=== PATIENT | male | born 2000 | race Caucasian/White ===

== ENCOUNTER 2022-01-25 22:04 | Emergency (ER) | payer MEDICAID, SELFPAY ==
[2022-01-25 22:27] VITALS: BP 122/62; PULSE 69; RESP 16; TEMP 36.8; O2SAT 98; BMI 29.2
[2022-01-26 00:20] VITALS: BP 140/58; PULSE 65; RESP 17; O2SAT 98
--- NOTE | 2022-01-26 00:20 | W.ED.NAVMDI ---
HPI - Nausea/Vomiting/Diarrhea General: Chief complaint: Nausea/Vomiting/Diarrhea Stated complaint: N/D Time Seen by Provider: 01/26/22 00:19 History of Present Illness: 21-year-old male patient comes in today with complaints of nausea vomiting and diarrhea. Patient's father reports that on Sunday patient did not feel very well and started having some loose stools. Sunday he threw up 2 times and had more watery diarrhea stools. Today patient has seemed improved but continues to have some diarrhea and abdominal discomfort. No fever has been reported. Patient did drink some pond water yesterday when he was working outside. Associated nausea: Yes Associated symtoms: Reports nausea Review of Systems Const: Reports: body aches; Denies: fever(s) GI: Reports: nausea, vomiting and diarrhea Physical Exam Const: COMMON NORMALS: alert HENMT: COMMON NORMALS: normocephalic HEAD & SCALP: normocephalic Neck/C-Spine: COMMON NORMALS: full ROM Resp: COMMON NORMALS: normal respiratory effort and clear to auscultation bilaterally AUSCULTATION: clear to auscultation bilaterally Cardio: COMMON NORMALS: regular rate and regular rhythm RATE: regular rate RHYTHM: regular rhythm GI: COMMON NORMALS: Soft to palpation and non-tender AUSCULTATION: Yes normoactive bowel sounds PALPATION: Yes Soft to palpation : COMMON NORMALS: Yes no CVA tenderness BLADDER/KIDNEY EXAM: Yes no CVA tenderness Back/Pelvis: COMMON NORMALS: no CVA tenderness and thoracic and lumbar spine normal to inspection Neuro: SENSORIUM/ORIENTATION: Yes alert Skin: COMMON NORMALS: turgor normal GENERAL SKIN EXAM: turgor normal Course Vital Signs: Vital signs: Vital Signs Temperature 98.3 F 01/25/22 22:27 Pulse Rate 65 01/26/22 00:20 Respiratory Rate 17 01/26/22 00:20 Blood Pressure 140/58 01/26/22 00:20 Pulse Oximetry 98 01/26/22 00:20 Oxygen Delivery Va thod 01/26/22 00:20 MDM - Nausea/Vomiting/Diarrhea Medical Decision Making 21-year-old male patient comes in today for complaints of nausea vomiting and diarrhea. On exam patient appears alert and oriented. Abdomen soft nontender. Oral mucosa is moist. Patient only reported 2 episodes of emesis. Patient has had diarrhea for the last 2 days. Differential diagnosis includes gastroenteritis, appendicitis, food poisoning, enteritis/colitis. No signs of serious illness was noted. Patient has been able to tolerate oral fluids without any difficulty today. Patient also reported some decrease in diarrhea stools. Patient reports being able to hold food down. Recommended continue monitoring. Encourage fluids and rest and electrolyte replacement solution. Discussed need for return to the ER or follow-up with primary care. Family reported understanding and agreed to plan. Discharge Plan Discharge Patient Disposition: Home Clinical Impression: Gastroenteritis Condition: Stable Discharge Orders: Discharge ED (Routine); Ordered 01/26/22 Ordered By: Sky Delong Discharge Diet: Advance as tolerated Discharge Activity: Increase activity as tolerated Patient Instructions: Gastroenteritis in Children (ED) Activity Restrictions/Additional Instructions: Encourage plenty of fluids. Use an electrolyte solution such as clear-colored Gatorade or lynch colored Gatorade or Pedialyte. 8 ounces 3 times a day to help replace salts. Other than that drink plenty of water and fluids. Follow-up with primary care as needed. Return to ER for worsening symptoms such as blood in vomit or stool, fever greater than 100.4, severe abdominal pain, or new concerns. Coding Level of Care Code ED [facility] [employer] [facility] for [facility]
== END 2022-01-26 00:38 | disposition home or self-care (01) ==
PROVIDERS: Emergency Provider Nurse Practitioner Family
DX: K52.9 Noninfective gastroenteritis and colitis, unspecified (principal)
CPT/HCPCS: 99282